=== PATIENT | male | born 1985 | race Caucasian/White ===

== ENCOUNTER 2016-08-25 17:21 | Emergency (ER) | payer OTHER ==
[~2016-08-25 17:21] MED LIST: ANTIBIOTIC
== END 2016-08-25 18:01 | disposition home or self-care (01) ==
LOC: SED 17:21
DX: L02.511 Cutaneous abscess of right hand (principal); F17.210 Nicotine dependence, cigarettes, uncomplicated
CPT/HCPCS: 99282